=== PATIENT | female | born 1960 | race Caucasian/White ===

== ENCOUNTER 2017-02-26 09:49 | Inpatient (IN) ==
[2017-02-26] MEDS ORDERED: DUONEB (A & A) INH ONE (10:12)
[2017-02-26] MEDS ORDERED: ROCEPHIN 1 GM/NS 1 GM/50 ML IVPB IV ONE (11:17)
[2017-02-26 11:29] LABS: MANUAL DIFF NEEDED? NO
[2017-02-26 11:41] LABS: BASO% 0.3 % (0.0-0.8); EOS# 0.45 X1000 (0.0-0.7); EOS% 3.6 % (0.0-10.0); HEMATOCRIT 43.1 % (37.0-47.0); HEMOGLOBIN 14.1 g/dL (12.0-16.0); IMM GRAN# 0.07 X1000 (0.0-0.04); IMM GRAN% 0.6 % (0.0-0.5); LYMPH# 2.74 X1000 (1.2-3.4); LYMPH% 22.1 % (20.5-51.1); MCH 31.1 PG (27-31); MCHC 32.7 g/dL (33-37); MCV 95.1 FL (81-99); MONO# 0.85 X1000 (0.11-0.59); MONO% 6.9 % (1.7-9.3); MPV 9.9 FL (7.4-10.4); NEUT% 66.5 % (42.2-75.2); PLT 299 X1000 (130-400); RBC 4.53 XMIL (4.2-5.4)
[2017-02-26 12:20] LABS: BE 6.8 mmoll (-3.0-3.0); BLOOD TYPE ARTERIAL; METHB 1.2 % (0.0-1.5); PCO2(98.6) 43 mmHg (35-45); PO2(98.6) 103 mmHg (60-100); SAMPLE BLOOD; SAO2 96.9 % (95.0-100.0); pH(98.6) 7.47 (7.35-7.45)
[2017-02-26 12:21] LABS: ALLEN TEST YES; DRAW SITE R RADIAL; MODALITY CANNULA
[2017-02-26 13:58] LABS: AGAP 13; ALBUMIN 3.9 g/dL (3.5-5.0); ALKALINE PHOSPHATASE 85 U/L (32-104); BUN 9 mg/dL (8-22); CALCIUM 8.7 mg/dL (8.8-10.2); CHLORIDE 97 mmol/L (98-107); COSMO 274; GOT 20 U/L (10-30); GPT 17 U/L (10-36); POTASSIUM 5.4 mmol/L (3.5-5.1); SODIUM 137 mmol/L (136-145); TCO2 27 mmol/L (25-35); TOTAL PROTEIN 6.9 g/dL (6.3-8.3)
--- NOTE | 2017-02-26 14:26 | Diag Imaging Result Document ---
PROCEDURE NAME: CHEST-2 VIEWS - 02/26/2017 CHEST X-RAY 2 VIEWS, 02/26/2017: COMPARISON: 06/03/2012. FINDINGS: There is cardiomegaly that has worsened since prior. There is pulmonary vascular congestion as well. There is some ill-defined infiltrate in the lingula and left lower lobe. No pneumothorax or significant effusion. Stable surgical clips in the left axilla. IMPRESSION: 1. Cardiomegaly and pulmonary vascular congestion. 2. Mild infiltrates in the lingula and left lung base suggesting bronchopneumonia.
[2017-02-26] MEDS ORDERED: ROCEPHIN IM ONE (14:27)
[2017-02-26] MEDS ORDERED: XYLOCAINE-MPF 1% INJ ONE (14:27)
[2017-02-26] MEDS ORDERED: ZOFRAN IV PRN (14:30)
[2017-02-26] MEDS ORDERED: TORADOL IV PRN (14:30)
--- NOTE | 2017-02-26 14:35 | PROVIDER DOCUMENTATION ---
This chart was entered by Lio Gonzalez Scribe, acting as scribe for Kd Joseph MD. HPI-Respiratory General - General Chief Complaint: Shortness of Breath Stated Complaint: REQ BREATHING TX Time Seen by Provider: 02/26/17 10:12 Source: patient Allergies/Adverse Reactions: Patient Allergies Allergy/AdvReac Type Severity Reaction Status Date / Time codeine Allergy RASH Verified 02/26/17 10:03 levofloxacin [From Levaquin] Allergy Unknown Verified 02/26/17 10:03 morphine Allergy HIVES Verified 02/26/17 10:03 Penicillins Allergy HIVES Verified 02/26/17 10:03 Home Medications: Home Medication List Medication Instructions Recorded Confirmed Last Taken Type Albuterol Sulfate Inhaler 2 puff INH Q6H PRN PRN 10/17/13 02/26/17 02/26/17 History [Ventolin Hfa] Cyclobenzaprine [Flexeril] 10 mg PO BID 10/17/13 02/26/17 02/26/17 History Furosemide [Lasix] 40 mg PO DAILY 10/17/13 02/26/17 02/26/17 History Hydrocodone/Acetaminophen [[place] 1 each PO 4XDAY 10/17/13 02/26/17 02/26/17 History 10-325 Tablet] Metformin [Glucophage] 500 mg PO BID CC 10/17/13 02/26/17 02/26/17 History Nifedipine [Procardia Xl] 60 mg PO DAILY 10/17/13 02/26/17 02/26/17 History Potassium Chloride [Klor-Con M20] 20 meq PO DAILY 10/17/13 02/26/17 02/26/17 History Rosuvastatin Calcium [Crestor] 2.5 mg PO DAILY 10/17/13 02/26/17 02/26/17 History Tiotropium [place] Inhaler 1 puff INH RTDAILY 10/17/13 02/26/17 02/26/17 History [Spiriva] Ibuprofen [Motrin] 400 mg PO Q6H PRN PRN #14 tablet 02/09/16 02/26/17 02/26/17 Rx Gabapentin [Gabapentin] 300 mg PO TID 02/26/17 02/26/17 02/26/17 History Lisinopril [Lisinopril] 20 mg PO DAILY 02/26/17 02/26/17 02/26/17 History - History of Present Illness-Resp Nature of Presenting Problem: patient is a 56 yo F that presents to the ER with shortness of breath that has gotten worse over the past week. No chest pain, n/v/d, or swelling. Reports no fever/chills. History of COPD and still smokes 1/2 ppd. . patient's o2 at triage was 88 % on RA Quality of Pain: reports: tightness Severity in ED: reports: moderate Onset/Duration: reports: gradual, 1 week ago Timing: reports: still present, getting worse Context: denies: recent URI, sports/exercise, aspiration/choking Cough Quality/Degree: reports: moderate, dry cough Episode Frequency: chronic episodes Current Respiratory Medication Therapy: Initiated see nurses note Modifying Factors: worse with: exertion, coughing Associated Symptoms: reports: cough, shortness of breath, short of breath, wheezing. denies: fever/chills, flu-like symptoms, headache, hurts to breathe, nasal congestion, nasal drainage Similar Symptoms Previously?: Yes Recently seen or treated by another doctor?: No Review of Systems - Adult - REVIEW OF SYSTEMS - ADULT Constitutional: denies: chills, fever Eyes: reports: no symptoms reported Ears, Nose, Mouth & Throat: reports: no symptoms reported Cardiovascular: denies: chest pain, orthopnea, palpitations, syncope Respiratory: reports: cough, dyspnea on exertion, shortness of breath, wheezing Gastrointestinal: denies: abdominal pain, diarrhea, nausea, vomiting Genitourinary: reports: no symptoms reported Musculoskeletal: reports: no symptoms reported Integumentary: reports: no symptoms reported Neurological: reports: no symptoms reported Psychiatric: reports: no symptoms reported Endocrine: reports: no symptoms reported Hematologic/Lymphatic: reports: no symptoms reported Allergic/Immunologic: reports: no symptoms reported All Other Systems: Reviewed and Negative Past History - Adult - PAST MEDICAL HISTORY-ADULT Review of Records: reports: Old Records Reviewed, Nursing Assessment Review, Medications Reviewed Cardiovascular: reports: HTN, hyperlipidemia Respiratory: reports: asthma, COPD - PRIOR SURGERIES/PROCEDURES Surgical/Procedure History: reports: appendectomy, cholecystectomy, hysterectomy - IMMUNIZATION STATUS Childhood Immunizations: See Nurse Assessment Flu Vaccine: See Nurse Assessment - FAMILY HISTORY Family History: reviewed, not pertinent - SOCIAL HISTORY Smoking: cigarettes, less than 1 pack/day Provider spent 3-5 mins advising pt. on dangers of tobacco.: Discussed manners to quit use, and f/u contacts for add'l counseling. Living Situation: family Physical Exam-General - PHYSICAL EXAM-ADULT Exam Limited by: morbidly obesity Initial Vital Signs Reviewed: Yes - CONSTITUTIONAL General Appearance: alert, mild distress, obese - EYES Eyes: PERRL/EOMI, pink conjunctivae - HEAD, EARS, NOSE, MOUTH & THROAT HENMT: normocephalic/atraumatic, moist mucous membranes, normal ENT inspection - NECK Neck: full range of motion, normal inspection - RESPIRATORY Respiratory: no respiratory distress, no accessory muscle use, decreased breath sounds, wheezing - CARDIOVASCULAR Cardiovascular: no gallop, no murmur, tachycardia - GASTROINTESTINAL (ABDOMEN) Abdominal Exam: normal bowel sounds, non tender, soft, no organomegaly, no pulsatile mass - MUSCULOSKELETAL Extremity: normal inspection, no pedal edema, normal capillary refill - SKIN Integumentary: normal color, warm/dry - NEUROLOGIC Neurologic: grossly normal, no motor/sensory deficits - PSYCHIATRIC Psych/Mental Status: normal mood/affect, normal thought content, normal thought process, oriented x 3 Progress - PLAN OF CARE/RESULTS Progress/Plan/Lab Results: Vital Signs - 8 hr 02/26/17 09:58 02/26/17 10:50 Temperature 98.5 F Pulse Rate 114 H 89 Respiratory Rate 22 16 Blood Pressure 152/89 O2 Sat by Pulse Oximetry 88 L 91 L Laboratory Results - last 24 hr 02/26/17 02/26/17 02/26/17 11:22 11:22 12:00 WBC 12.38 H RBC 4.53 Hgb 14.1 Hct 43.1 MCV 95.1 MCH 31.1 H MCHC 32.7 L RDW Std Deviation 14.9 H Plt Count 299 MPV 9.9 Immature Gran % (Auto) 0.6 H Neut % (Auto) 66.5 Lymph % (Auto) 22.1 Wilkes % (Auto) 6.9 Eos % (Auto) 3.6 Baso % (Auto) 0.3 Immature Gran # (Auto) 0.07 H Neut # (Auto) 8.23 H Lymph # (Auto) 2.74 [place]kes # (Auto) 0.85 H Eos # (Auto) 0.45 Baso # (Auto) 0.04 Specimen Type ARTERIAL Sample Site R RADIAL pH 7.47 H pCO2 43 pO2 103 H HCO3 30.0 H Base Excess 6.8 H Oxyhemoglobin 90.1 L ABG O2 Saturation 96.9 ABG Carboxyhemoglobin 5.80 H* ABG Methemoglobin 1.2 Kam Test YES A-a O2 Difference 100.0 Total Hemoglobin 14.0 Lactate 1.60 Liter Flow 4.0 Blood Gas Modality CAN[place]ULA FiO2 % 36.0 Sodium 137 Potassium 5.4 H Chloride 97 L Carbon Dioxide 27 Anion Gap 13 BUN 9 Creatinine 0.6 Estimated GFR/1.73 m2 > 60 BUN/Creatinine Ratio 15 Glucose 134 H Calculated Osmolality 274 Calcium 8.7 L Total Bilirubin 0.20 AST 20 ALT 17 Alkaline Phosphatase 85 Total Protein 6.9 Albumin 3.9 Globulin 3.0 Albumin/Globulin Ratio 1.3 Orders Category Date Time Status IV Insertion ORDERED Care 02/26/17 11:16 Completed Oxygen Therapy- ED Nursing DIRECTED Care 02/26/17 10:12 Active Saline Loc DIRECTED Care 02/26/17 10:12 Active CHEST-2 VIEWS [RAD] Stat Exams 02/26/17 10:23 Taken ABG [RESP] Routine Lab 02/26/17 12:00 Completed BLOOD CULTURE [BLDCUL] Stat Lab 02/26/17 14:07 Ordered CBC WITH ELECTRONIC DIFF [HEME] Stat Lab 02/26/17 11:22 Completed CMP [COMPREHENSIVE METABOLIC PANEL] [CHEM] Stat Lab 02/26/17 11:22 Completed URINALYSIS W/POSS RFLX CULT-1 [URINALYSIS] Stat Lab 02/26/17 11:16 Uncollected Albuterol 2.5MG/Ipratrop 0.5MG [Duoneb (A & A)] Med 02/26/17 10:12 Discontinued 3 ml INH NOW ONE CefTRIAXONE 1 GM/NS [Rocephin 1 gm/Ns] Med 02/26/17 11:17 Discontinued 1 gm in 50 ml IV NOW Aerosol Treatments Routine Oth 02/26/17 10:13 Completed Aerosol Treatments Stat Oth 02/26/17 10:12 Completed Aerosol Treatments Stat Oth 02/26/17 10:13 Completed Pulse Oximetry Stat Oth 02/26/17 10:12 Completed Result Diagrams: 02/26/17 11:22 02/26/17 11:22 - XRAY 1 XRAY Study: Chest Impression: Abnormal XRAY Interpretation: L base infiltrates sugg. bronchopneumonia, cmg, pul vas princess - CONSULTS/PCP/HOSPITALIST Notification #1 *Consult/PCP/Hospitalist*: Time Discussed: 14:26 Reason/Comments: Bilateral bronchopneumonia Consult Disposition: Admit Departure - Departure Time of Disposition Decision: 14:27 DIAGNOSIS: Bronchopneumonia, COPD exacerbation Dyspnea Qualifiers: Dyspnea type: dyspnea on exertion Qualified Code(s): R06.09 - Other forms of dyspnea Disposition: ADMITTED INPATIENT 09 Certified Medical Emergency: Emergent Condition: Stable Referrals and Follow-Ups: Bandar Roberson MD [Primary Care Provider] - - Critical Care Note This patient required my direct & personal management of CC.: No This chart was documented by the indicated scribe, (Lio Gonzalez, Scribe) and accurately reflects the services I performed and decisions made by me, Kd Joseph MD, as attested by the provider's signature.
[2017-02-26 14:45] LABS: URINE CULTURE NEEDED? NO; URINE MICRO REVIEW NEEDED? NO; URINE SOURCE CLEAN CATCH
[2017-02-26 14:53] LABS: BILIRUBIN URINE NEGATIVE (NEGATIVE); BLOOD URINE NEGATIVE (NEGATIVE); COLOR YELLOW; GLUCOSE URINE NEGATIVE (NEGATIVE); LEUKOCYTES URINE NEGATIVE (NEGATIVE); NITRITE URINE NEGATIVE (NEGATIVE); PH URINE 5.5; PROTEIN URINE NEGATIVE (NEGATIVE); SP GRAVITY URINE 1.017; TURBIDITY URINE CLEAR (CLEAR); UROBILINOGEN URINE NORMAL (NORMAL)
[2017-02-26 14:57] LABS: UR EPITHELIAL CELLS <10 /HPF (<10); URINE BACTERIA NEGATIVE /HPF; URINE RBC <10 /HPF (<10); URINE WBC <10 /HPF (<10)
[2017-02-26] MEDS ORDERED: DUONEB (A & A) INH SCH (15:30)
[2017-02-26] MEDS ORDERED: COMMIT BUCCAL PRN (17:57)
[2017-02-26] MEDS ORDERED: LASIX IV ONE (18:07)
[2017-02-26] MEDS ORDERED: NICOTINE GUM MISC PRN (18:45)
[2017-02-26] MEDS: ALBUTEROL NEB INH PRN ×2 (19:57→22:42)
--- NOTE | 2017-02-26 20:01 | HISTORY AND PHYSICAL ---
CHIEF COMPLAINT: Cough and shortness of breath. PRESENT ILLNESS: Mrs. Lemus is a 55-year-old woman I have followed in my office for many years for morbid obesity, COPD due to ongoing cigarette abuse and type 2 diabetes mellitus. She also has central hypertension, sleep apnea and chronic low back pain. She presented to the emergency room today with a 6-7 day history of progressive chest congestion, cough, shortness of breath and some slight left-sided chest aching. She denies any fever or chills. Her cough is dry with minimal if any sputum production. She is on chronic home oxygen. She continues to smoke 1/2 to 3/4 of a pack of cigarettes per day. Multiple previous attempts at quitting smoking have been unsuccessful even with Chantix. Evaluation in the emergency room showed left lingular pneumonia. Her white blood count is somewhat elevated at 12,000. PAST MEDICAL HISTORY: Longstanding obesity, essential hypertension, chronic obstructive lung disease with hypoxemia and cor pulmonale. She has obstructive sleep apnea but is unable to tolerate CPAP. She has type 2 diabetes mellitus which has been relatively well- controlled with her last A1c 6 months ago at 5.8. PAST SURGICAL HISTORY: Positive for hysterectomy. HOME MEDICATIONS: Crestor 5 mg daily, Klor-Con 20 mEq daily, Procardia XL 60 mg daily, [place] 10 mg one 4 times a day for chronic pain, ProAir, albuterol inhaler 2 puffs 4 times a day, Spiriva HandiHaler 1 inhalation daily, vitamin D2 50,000 units once a week, furosemide 40 mg q.a.m., metformin 500 mg 1 in the morning 2 at the evening meal. ALLERGIC: Levofloxacin, atorvastatin, penicillin, codeine, erythromycin base and morphine. SOCIAL HISTORY: She is and lives with her . She does not use alcohol. REVIEW OF SYSTEMS: General: No headache, night sweats or weight loss. Cardiovascular: No recent chest pain. No history of angina or ischemic heart disease. She has a questionable history of cor pulmonale on echocardiogram but no left heart failure, no valvular heart disease, no palpitations, syncope or near syncope. Gastrointestinal: Appetite is good. No nausea or vomiting. No diarrhea, constipation, melena or bright red blood per rectum. No history of hepatitis. Genitourinary: No dysuria or hematuria. Musculoskeletal: Longstanding chronic low back pain followed at [facility] by Dr. Bravo. Neuropsychiatric: No history of strokes, seizures or memory disorders. Endocrine: History of incidentally discovered adrenal mass on CT scan several years ago. PHYSICAL EXAMINATION: VITAL SIGNS: See nurse's notes. GENERAL APPEARANCE: A morbidly obese, white female who appears older than her stated age. Sitting up on the side of the bed with oxygen on. SKIN: Warm, pink, and dry. There is no visible rash or striae. HEENT EXAMINATION: No visible trauma. Pupils are equal, round, reactive to light. Extraocular movements are intact. Oropharynx is benign with some tobacco staining. NECK: Supple with no adenopathy, JVD, thyromegaly or bruits. CHEST EXAMINATION: There are slightly diminished breath sounds in the left base. Otherwise air movement is good. I do not appreciate any wheezing or crackles. CARDIOVASCULAR: Regular rate and rhythm with distant S1, S2. No S3, S4, murmurs are heard. ABDOMEN: Obese soft, nontender, with no palpable masses. Bowel sounds are active. EXTREMITIES: There is moderate chronic brawny edema of both feet, ankles and lower legs. There is moderate stasis dermatitis changes to both shins. NEUROLOGIC EXAMINATION: Mental status is normal, clear and well-articulated speech. Cranial nerve examination is unremarkable. She moves all extremities on command. Gait is not tested. DATABASE: ABG on 4 L: pH 7.47, pCO2 43, PO2 103, lactate is normal, carboxyhemoglobin 5.8%. Hemoglobin and hematocrit are normal. White blood count 12,300. Sodium 137, potassium 5.4, glucose 134, BUN and creatinine are normal. Calcium is 8.7. Liver enzymes are unremarkable. Chest x-ray shows hazy infiltrate at left lingula and perhaps the left base. There is some increased cardiomegaly present. ASSESSMENT: 1. Cough and shortness of breath probably due to pneumonia. 2. Possible mild congestive heart failure. 3. Chronic obstructive lung disease with ongoing cigarette smoking. I have emphasized to her that it is time to make a decision whether to quit smoking and live or continue to smoke and fairly soon. 4. Type 2 diabetes mellitus, previously well-controlled. 5. Morbid obesity with obstructive sleep apnea, untreated. PLAN: Due to her allergies we will use intravenous Rocephin and oral doxycycline. I think several days of IV Lasix should help her edema and perhaps the pulmonary vascular congestion. I have reordered her Chantix and some nicotine lozenges. Her alf prognosis remains guarded due to her difficulty in quitting smoking. cc: Bandar Roberson MD MTDD
[2017-02-26] MEDS: CHANTIX PO SCH (21:53)
[2017-02-26] MEDS: DOXYCYCLINE PO SCH (21:53)
[2017-02-26] MEDS: NORCO-10 PO SCH (21:53)
[2017-02-27] MEDS: TYLENOL PO PRN (03:21)
[2017-02-27] MEDS: ALBUTEROL NEB INH PRN ×5 (03:47→22:49)
[2017-02-27] MEDS: SPIRIVA INH SCH (07:48)
[2017-02-27] MEDS: NEURONTIN PO SCH ×3 (08:39→17:37)
[2017-02-27] MEDS: NORCO-10 PO SCH ×4 (08:39→21:27)
[2017-02-27] MEDS: PROCARDIA ER PO SCH (08:39)
[2017-02-27] MEDS: PRINIVIL PO SCH (08:39)
[2017-02-27] MEDS: LASIX IV SCH (08:40)
[2017-02-27] MEDS: CRESTOR PO SCH (08:40)
[2017-02-27] MEDS: DOXYCYCLINE PO SCH ×2 (08:40→21:27)
[2017-02-27] MEDS: GLUCOPHAGE PO SCH ×2 (08:40→17:37)
[2017-02-27] MEDS ORDERED: KLOR-CON PO SCH (09:00)
[2017-02-27] MEDS ORDERED: ROSUVASTATIN CALCIUM 2.5 MG PO SCH (09:00)
[2017-02-27] MEDS ORDERED: ROCEPHIN 1 GM/NS 1 GM/50 ML IVPB IV SCH (12:00)
[2017-02-27] MEDS ORDERED: COMMIT BUCCAL PRN (15:35)
[2017-02-27] MEDS: CHANTIX PO SCH (21:28)
[2017-02-28] MEDS: NEURONTIN PO SCH ×4 (01:16→21:10)
[2017-02-28] MEDS: NORCO-10 PO SCH ×4 (01:16→21:09)
[2017-02-28] MEDS: ALBUTEROL NEB INH PRN ×6 (03:35→23:16)
[2017-02-28 05:52] LABS: MANUAL DIFF NEEDED? NO
[2017-02-28 06:03] LABS: BASO% 0.3 % (0.0-0.8); EOS# 0.31 X1000 (0.0-0.7); EOS% 3.2 % (0.0-10.0); HEMATOCRIT 39.6 % (37.0-47.0); HEMOGLOBIN 12.5 g/dL (12.0-16.0); IMM GRAN# 0.04 X1000 (0.0-0.04); IMM GRAN% 0.4 % (0.0-0.5); LYMPH# 2.29 X1000 (1.2-3.4); LYMPH% 23.5 % (20.5-51.1); MCH 30.2 PG (27-31); MCHC 31.6 g/dL (33-37); MCV 95.7 FL (81-99); MONO# 0.75 X1000 (0.11-0.59); MONO% 7.7 % (1.7-9.3); NEUT% 64.9 % (42.2-75.2); PLT 256 X1000 (130-400); RBC 4.14 XMIL (4.2-5.4)
[2017-02-28 06:10] LABS: AGAP 9; BUN 13 mg/dL (8-22); CHLORIDE 101 mmol/L (98-107); COSMO 286; POTASSIUM 4.4 mmol/L (3.5-5.1); SODIUM 142 mmol/L (136-145); TCO2 32 mmol/L (25-35)
[2017-02-28] MEDS: SPIRIVA INH SCH (07:19)
[2017-02-28] MEDS: PRINIVIL PO SCH (08:36)
[2017-02-28] MEDS: DOXYCYCLINE PO SCH ×2 (08:36→21:10)
[2017-02-28] MEDS: GLUCOPHAGE PO SCH (08:36)
[2017-02-28] MEDS: PROCARDIA ER PO SCH (08:36)
[2017-02-28] MEDS: LASIX IV SCH (08:37)
[2017-02-28] MEDS: CRESTOR PO SCH (08:38)
[2017-02-28] MEDS ORDERED: QUININE SULFATE PO ONE (08:42)
[2017-02-28] MEDS ORDERED: PRILOSEC PO ONE (08:43)
[2017-02-28] MEDS: LASIX PO SCH (09:00)
--- NOTE | 2017-02-28 10:20 | EKG Report ---
Test Performed on : 02/28/2017 09:15:44 AM Test Reason : cor pulmonale Blood Pressure : / mmHG Vent. Rate : 102 BPM Atrial Rate : 102 BPM P-R Int : 136 ms QRS Dur : 074 ms QT Int : 350 ms P-R-T Axes : 067 073 050 degrees QTc Int : 456 ms Sinus tachycardia. Otherwise normal ECG When compared with ECG of 03-JUN-2012 16:39, No significant change was found Confirmed by Bakari Burgos MD ([id number]) on 03/01/2017 7:02:19 AM
[2017-02-28] MEDS ORDERED: GLUCOPHAGE PO SCH (17:00)
[2017-02-28] MEDS: CHANTIX PO SCH (21:09)
[2017-03-01] MEDS: NORCO-10 PO SCH ×2 (02:18→09:01)
[2017-03-01] MEDS: ALBUTEROL NEB INH PRN ×3 (03:24→11:25)
[2017-03-01] MEDS: TYLENOL PO PRN (06:55)
[2017-03-01] MEDS ORDERED: PRILOSEC PO SCH (07:00)
[2017-03-01] MEDS: SPIRIVA INH SCH (07:43)
[2017-03-01] MEDS ORDERED: GLUCOPHAGE PO SCH (08:00)
[2017-03-01 08:39] VITALS: BP 149/48
[2017-03-01] MEDS: CRESTOR PO SCH (08:59)
[2017-03-01] MEDS: PRINIVIL PO SCH (09:00)
[2017-03-01] MEDS: LASIX PO SCH (09:00)
[2017-03-01] MEDS: NEURONTIN PO SCH (09:01)
[2017-03-01] MEDS: DOXYCYCLINE PO SCH (09:01)
[2017-03-01] MEDS: PROCARDIA ER PO SCH (09:12)
--- NOTE | 2017-04-16 18:40 | DISCHARGE SUMMARY ---
ADMISSION DATE: 02/26/2017 DISCHARGE DATE: 03/01/2017 FINAL DIAGNOSES: 1. Left lingular pneumonia. 2. Chronic obstructive pulmonary disease with acute exacerbation. 3. Nicotine dependence. 4. Type 2 diabetes mellitus. 5. Morbid obesity with untreated obstructive sleep apnea. PRESENT ILLNESS: Mrs. Lemus is a 55-year-old woman with longstanding tobacco abuse and COPD. She presented to the emergency room with a 6-7 day history of progressive chest congestion, cough, shortness of breath and some left-sided chest aching. She denied fever or chills. She is on chronic home oxygen therapy but continues to smoke 3/4 of a pack cigarettes per day. Chest x-ray in the emergency room showed left lingular pneumonia with elevated white blood count of 12,000. PHYSICAL EXAMINATION: Vital Signs: Unremarkable. See nurse's notes. HEENT Examination: Unremarkable. Neck: Supple with no JVD or bruits. Chest Examination: Diminished breath sounds in the left base. Air movement was good. No crackles or wheezes were heard. Cardiac Examination: Regular rate and rhythm with distant S1, S2. No murmurs. Abdomen: Obese, soft and nontender. DATABASE: Lactate is normal. Arterial blood gas on 4 L: pH 7.47, pCO2 43, PO2 103, carboxyhemoglobin 5.8%. HOSPITAL COURSE: She was admitted to the medical floor and treated with intravenous Rocephin and oral doxycycline. She was given several doses of intravenous Lasix for the possibility of some fluid overload. With [id number] nebulizer treatments and smoking cessation her shortness of breath and cough improved. Intravenous Rocephin was stopped. She continued to improve. Follow- up white blood count was 9000. Blood cultures were negative. At the time of discharge she was ambulatory with much improved shortness of breath and cough. She is willing to attempt smoking cessation yet again. Prescriptions were written for Chantix and her home medications. Her blood sugars have remain well-controlled while she was here. Hemoglobin A1c was actually near normal at 6.0. She is discharged in improved condition and to return to my office in 2 weeks for followup. cc: Bandar Roberson MD
== END 2017-03-01 12:52 | disposition home or self-care (01) ==
LOC: ED 09:49 → 4N 14:54
PROVIDERS: ADMIT Internal Medicine; ATTEND Internal Medicine

== ENCOUNTER 2018-10-26 18:09 | Inpatient (IN) ==
[2018-10-26 18:49] LABS: BASO# 0.04 X1000 (0.0-0.2); BASO% 0.3 % (0.0-0.8); EOS# 1.17 X1000 (0.0-0.7); EOS% 8.3 % (0.0-10.0); HEMATOCRIT 43.9 % (37.0-47.0); HEMOGLOBIN 13.9 g/dL (12.0-16.0); IMM GRAN# 0.12 X1000 (0.0-0.04); IMM GRAN% 0.8 % (0.0-0.5); LYMPH% 14.2 % (20.5-51.1); MCH 30.3 PG (27-31); MCHC 31.7 g/dL (33-37); MCV 95.6 FL (81-99); MONO# 0.86 X1000 (0.11-0.59); MONO% 6.1 % (1.7-9.3); MPV 9.5 FL (7.4-10.4); NEUT# 9.93 X1000 (1.4-6.5); NEUT% 70.3 % (42.2-75.2); PLT 342 X1000 (130-400); RBC 4.59 XMIL (4.2-5.4); RDW 14.7 % (11.5-14.5); WBC 14.12 X1000 (4.8-10.8)
--- NOTE | 2018-10-26 18:53 | PROVIDER DOCUMENTATION ---
This chart was entered by Maryellen Gil Scribe, acting as scribe for Tim Ramos DO. HPI-Respiratory General - General Source: patient - History of Present Illness-Resp Quality of Pain: reports: none Severity in ED: reports: moderate Onset/Duration: reports: 2 days ago, 3 days ago Timing: reports: getting worse Exposure: reports: unknown cause Cough Quality/Degree: reports: moderate, productive cough, sputum (brown) Episode Frequency: frequent episodes Current Respiratory Medication Therapy: Initiated albuterol (no improvment) Modifying Factors: improves with: exertion (worsens), albuterol nebulizer (no change) Associated Symptoms: reports: cough, shortness of breath, wheezing. denies: fever/chills Similar Symptoms Previously?: Yes Recently seen or treated by another doctor?: Yes <Tim Ramos - Last Filed: 10/26/18 20:25> <Eden Wiseman - Last Filed: 10/26/18 21:04> - General Stated Complaint: COPD, SOB Time Seen by Provider: 10/26/18 18:16 Allergies/Adverse Reactions: Patient Allergies Allergy/AdvReac Type Severity Reaction Status Date / Time codeine Allergy RASH Verified 02/26/17 10:03 levofloxacin [From Levaquin] Allergy Unknown Verified 02/26/17 10:03 morphine Allergy HIVES Verified 02/26/17 10:03 Penicillins Allergy HIVES Verified 02/26/17 10:03 Home Medications: Home Medication List Medication Instructions Recorded Confirmed Last Taken Type Albuterol Sulfate Inhaler 2 puff INH Q6H PRN PRN 10/17/13 09/26/18 02/26/17 History [Ventolin Hfa] Hydrocodone/Acetaminophen [[place] 1 each PO Q4HR PRN 10/17/13 09/27/18 09/26/18 History 10-325 Tablet] Nifedipine [Procardia Xl] 60 mg PO DAILY 10/17/13 09/26/18 02/26/17 History Potassium Chloride [Klor-Con M20] 20 meq PO DAILY 10/17/13 09/26/18 02/26/17 History Rosuvastatin Calcium [Crestor] 2.5 mg PO DAILY 10/17/13 09/26/18 02/26/17 History Tiotropium Mood[place] Inhaler 1 puff INH RTDAILY 10/17/13 09/26/18 02/26/17 History [Spiriva] Gabapentin 300 mg PO TID 02/26/17 09/26/18 02/26/17 History Lisinopril 20 mg PO DAILY 02/26/17 09/26/18 02/26/17 History Acetaminophen [Tylenol] 650 mg PO Q6H PRN PRN #0 tablet 03/01/17 09/26/18 Unknown Rx Furosemide [Lasix] 40 mg PO DAILY #30 tablet 03/01/17 09/26/18 Unknown Rx Metformin [Glucophage] 1,000 mg PO DAILY@1700 tablet 03/01/17 09/26/18 Unknown Rx Metformin [Glucophage] 500 mg PO WBREAKFAST tablet 03/01/17 09/26/18 Unknown Rx Varenicline [Chantix] 0.5 mg PO BID #60 tablet 03/01/17 09/26/18 Unknown Rx CefUROXIME [Ceftin] 250 mg PO Q12HR 5 Days #10 tab 09/30/18 Unknown Rx Prednisone 20 mg PO DAILY #5 tab 09/30/18 Unknown Rx Nitrofurantoin Monohyd/M-Cryst 100 mg PO BID #14 cap 10/11/18 Unknown Rx [Macrobid 100 mg Capsule] - History of Present Illness-Resp Nature of Presenting Problem: pt is a 58 yr old female presenting via EMS with 2-3 day hx of increased shortness of breath, no relief with breathing treatment, pt hx of same 10/01. pt denies any other complaints (Tim Ramos) pt is a 58 yr old female presenting via EMS with 2-3 day hx of increased shortness of breath, no relief with breathing treatment, pt hx of same 10/01. pt denies any other complaints (Maryellen Gil) Review of Systems - Adult - REVIEW OF SYSTEMS - ADULT Constitutional: reports: hussein. denies: fever Eyes: denies: blurred vision, double vision Ears, Nose, Mouth & Throat: denies: ear pain, sinus problem, throat pain Cardiovascular: denies: chest pain, palpitations, syncope Respiratory: reports: chronic cough, cough, dyspnea on exertion, excessive sputum production (brown sputum), shortness of breath, wheezing Gastrointestinal: reports: no symptoms reported Genitourinary: reports: no symptoms reported Musculoskeletal: reports: no symptoms reported Integumentary: reports: no symptoms reported Neurological: denies: dizziness/vertigo, headache/migraines Psychiatric: reports: no symptoms reported Endocrine: reports: no symptoms reported Hematologic/Lymphatic: reports: no symptoms reported Allergic/Immunologic: reports: no symptoms reported All Other Systems: Reviewed and Negative <Tim Ramos - Last Filed: 10/26/18 20:25> Past History - Adult - PAST MEDICAL HISTORY-ADULT Review of Records: reports: Old Records Reviewed, Nursing Assessment Review, Medications Reviewed, Social history reviewed & non-contributory. Major Childhood Illnesses: reports: denies history Cardiovascular: reports: HTN, hyperlipidemia Respiratory: reports: asthma, COPD Gastrointestinal: reports: denies history Obstetrical/Gynecological: reports: denies history Genitourinary: reports: denies history Musculoskeletal: reports: denies history Neurological: reports: denies history Endocrine/Immune: reports: denies history Other Conditions: reports: denies history - PRIOR SURGERIES/PROCEDURES Surgical/Procedure History: reports: appendectomy, cholecystectomy, hysterectomy - IMMUNIZATION STATUS Childhood Immunizations: See Nurse Assessment Flu Vaccine: See Nurse Assessment - FAMILY HISTORY Family History: reviewed, not pertinent - SOCIAL HISTORY Smoking: quit less than 1 year Substance Use: denies Living Situation: alone <Tim Ramos - Last Filed: 10/26/18 20:25> Physical Exam-General - PHYSICAL EXAM-ADULT Initial Vital Signs Reviewed: Yes - CONSTITUTIONAL General Appearance: alert, mild distress, obese - EYES Eyes: PERRL/EOMI - HEAD, EARS, NOSE, MOUTH & THROAT HENMT: normocephalic/atraumatic, moist mucous membranes, normal ENT inspection - NECK Neck: non-tender, full range of motion, supple, normal inspection - RESPIRATORY Respiratory: chest non-tender, no pleuratic chest pain, no accessory muscle use , respiratory distress (mild), wheezing (in/ex wheezing diffusely) - CARDIOVASCULAR Cardiovascular: normal peripheral pulses, tachycardia (115) - GASTROINTESTINAL (ABDOMEN) Abdominal Exam: normal bowel sounds, non tender, soft - LYMPHATIC Lymphatic: no adenopathy - MUSCULOSKELETAL Back Exam: normal inspection, no CVA tenderness, no vertebral tenderness Extremity: normal range of motion, non-tender, other (chronic lympedema) - SKIN Integumentary: normal color, normal turgor, warm/dry - NEUROLOGIC Neurologic: grossly normal, no motor/sensory deficits - PSYCHIATRIC Psych/Mental Status: normal mood/affect, normal thought content, normal thought process, oriented x 3 <Tim Ramos - Last Filed: 10/26/18 20:25> Progress - PLAN OF CARE/RESULTS Result Diagrams: 10/26/18 18:30 10/26/18 18:30 - EKG 1 Time of EKG reading by physician:: 19:30 EKG Read and Signed by:: Eden Wiseamn EKG Interpretation (*Must complete 3 of following elements*): Abnormal Rate: 110 Rhythm: afib with RVR [place]: normal [place] Interval: normal ST Wave: normal - XRAY 1 XRAY Study: Chest Impression: Abnormal ( Signed CHEST-1 VIEW - 10/26/2018 INDICATION: SEPSIS PROTOCOL COMPARISON: 10/03/2018 FINDINGS: There is significant cardiomegaly and pulmonary vascular congestion. There are new extensive bilateral infiltrates. No pneumothorax or large pleural effusion. IMPRESSION: Cardiomegaly and pulmonary edema. Electronically signed by Elijah Baker 10/26 7:37 PM 10/26/181936 Interpreting Physician: Elijah Baker MD Dictated Date/Time: 10/26/181935 cc: Tim Ramos DO; Bandar Roberson MD) Comparison with other Films: changes noted (10/03/18) - CHANGE OF SHIFT REPORT (ED Provider) Report Given and Care Transferred to:: [facility] <Tim Ramos - Last Filed: 10/26/18 20:25> - PLAN OF CARE/RESULTS Result Diagrams: 10/26/18 18:30 10/26/18 18:30 - REASSESSMENT Reassessment #1 Status: improving (pt signed out to me by Dr. Ramos pending labs and imaging. Pt with marked wheezes on my inital exam, much improved with duonebs and prednisone. Mildly elevated bnp with CHF on CXR likely due to new onset CHF. lasix given. pt mildy tachycardic with accelerated afib improved with diltiazem. Feeling better overall but continues to be hypoxic when removed from the venti-mask and placed back on home [place] oxygen. Will admit for further evaluation and treatment. Discussed case with Dr. Anderson, Hospitalist who will see and admit pt.) <BowenEden Joan - Last Filed: 10/26/18 21:04> - PLAN OF CARE/RESULTS Progress/Plan/Lab Results: Vital Signs - 8 hr 10/26/18 18:18 10/26/18 18:20 10/26/18 18:30 Temperature 98.1 F Pulse Rate 123 H 117 H 112 H Respiratory Rate 16 24 15 Blood Pressure 154/75 154/75 O2 Sat by Pulse Oximetry 92 L 94 L 95 10/26/18 18:40 10/26/18 18:50 10/26/18 19:00 Temperature Pulse Rate 106 H 118 H 114 H Respiratory Rate 20 16 23 Blood Pressure O2 Sat by Pulse Oximetry 95 93 L 94 L 10/26/18 19:10 10/26/18 19:20 10/26/18 19:30 Temperature Pulse Rate 100 H 121 H 105 H Respiratory Rate 26 H 18 21 Blood Pressure O2 Sat by Pulse Oximetry 93 L 92 L 93 L 10/26/18 19:40 10/26/18 19:50 10/26/18 19:59 Temperature Pulse Rate 88 102 H Respiratory Rate 17 18 Blood Pressure 136/88 O2 Sat by Pulse Oximetry 92 L 93 L 91 L 10/26/18 20:01 10/26/18 20:02 10/26/18 20:04 Temperature Pulse Rate 100 H 124 H 106 H Respiratory Rate 21 23 26 H Blood Pressure 161/146 O2 Sat by Pulse Oximetry 91 L 92 L 10/26/18 20:05 Temperature Pulse Rate 102 H Respiratory Rate 20 Blood Pressure 121/72 O2 Sat by Pulse Oximetry 92 L 10/26/18 20:06 Influenza Screen - Final Nasopharyngeal Laboratory Results - last 24 hr 10/26/18 10/26/18 10/26/18 18:30 18:30 18:30 WBC 14.12 H RBC 4.59 Hgb 13.9 Hct 43.9 MCV 95.6 MCH 30.3 MCHC 31.7 L RDW Std Deviation 14.7 H Plt Count 342 MPV 9.5 Immature Gran % (Auto) 0.8 H Neut % (Auto) 70.3 Lymph % (Auto) 14.2 L [place] % (Auto) 6.1 Eos % (Auto) 8.3 Baso % (Auto) 0.3 Immature Gran # (Auto) 0.12 H Neut # (Auto) 9.93 H Lymph # (Auto) 2.00 Whitman # (Auto) 0.86 H Eos # (Auto) 1.17 H Baso # (Auto) 0.04 PT INR PTT (Actin FS) Sodium 144 Potassium 3.6 Chloride 98 Carbon Dioxide 33 Anion Gap 13 BUN 9 Creatinine 0.6 Estimated GFR/1.73 m2 > 60 BUN/Creatinine Ratio 15 Glucose 169 H Calculated Osmolality 289 Calcium 8.9 Total Bilirubin 0.27 AST 8 L ALT 6 L Alkaline Phosphatase 77 Creatine Kinase 33 Troponin T Lju-S-Iluwflsnwtw Pept Total Protein 6.3 Albumin 3.6 Globulin 2.7 Albumin/Globulin Ratio 1.3 Plasma Lactate 10/26/18 10/26/18 10/26/18 18:30 18:30 18:30 WBC RBC Hgb Hct MCV MCH MCHC RDW Std Deviation Plt Count MPV Immature Gran % (Auto) Neut % (Auto) Lymph % (Auto) Whitman % (Auto) Eos % (Auto) Baso % (Auto) Immature Gran # (Auto) Neut # (Auto) Lymph # (Auto) [place] # (Auto) Eos # (Auto) Baso # (Auto) PT 13.5 INR 0.95 PTT (Actin FS) 26.0 Sodium Potassium Chloride Carbon Dioxide Anion Gap BUN Creatinine Estimated GFR/1.73 m2 BUN/Creatinine Ratio Glucose Calculated Osmolality Calcium Total Bilirubin AST ALT Alkaline Phosphatase Creatine Kinase Troponin T < 0.010 Rzx-P-Zvkgnfsccus Pept Total Protein Albumin Globulin Albumin/Globulin Ratio Plasma Lactate 1.5 10/26/18 18:30 WBC RBC Hgb Hct MCV MCH MCHC RDW Std Deviation Plt Count MPV Immature Gran % (Auto) Neut % (Auto) Lymph % (Auto) [place] % (Auto) Eos % (Auto) Baso % (Auto) Immature Gran # (Auto) Neut # (Auto) Lymph # (Auto) [place] # (Auto) Eos # (Auto) Baso # (Auto) PT INR PTT (Actin FS) Sodium Potassium Chloride Carbon Dioxide Anion Gap BUN Creatinine Estimated GFR/1.73 m2 BUN/Creatinine Ratio Glucose Calculated Osmolality Calcium Total Bilirubin AST ALT Alkaline Phosphatase Creatine Kinase Troponin T Kfx-S-Yzefludfpmc Pept 442 H Total Protein Albumin Globulin Albumin/Globulin Ratio Plasma Lactate Orders Category Date Time Status Cardiac Monitoring DIRECTED Care 10/26/18 18:22 Active Cardiac Monitoring DIRECTED Care 10/26/18 18:25 Completed IV Insertion ORDERED Care 10/26/18 18:22 Completed IV Insertion ORDERED Care 10/26/18 18:25 Completed Notify MD of + Sepsis Screen NOW Care 10/26/18 18:22 Active Notify MD of + Sepsis Screen NOW Care 10/26/18 18:25 Completed Notify Physician As Ordered Care 10/26/18 18:22 Active Notify Physician As Ordered Care 10/26/18 18:25 Inactive CHEST-1 VIEW [RAD] Stat Exams 10/26/18 18:25 Completed BLOOD CULTURE [BLDCUL] Stat Lab 10/26/18 18:42 Results BNP [PRO B-NATRIURETIC PEPTIDE] Stat Lab 10/26/18 18:30 Completed CBC WITH DIFF [HEME] Stat Lab 10/26/18 18:30 Completed CK PROFILE [SP CHEM] Stat Lab 10/26/18 18:30 Completed COMPREHENSIVE METABOLIC PANEL [CHEM] Stat Lab 10/26/18 18:30 Completed INFLUENZA SCREEN A/B Stat Lab 10/26/18 20:06 Completed LACTATE, PLASMA [CHEM] Q3H Lab 10/26/18 18:30 Completed PROTIME WITH INR [COAG] Stat Lab 10/26/18 18:30 Completed PTT [COAG] Stat Lab 10/26/18 18:30 Completed TROPONIN T Stat Lab 10/26/18 18:30 Completed 0.9% Sodium Chloride Inj [Ns] 500 ml Med 10/26/18 19:08 Discontinued IV 999 mls/hr Albuterol 2.5MG/Ipratrop 0.5MG [Duoneb (A & A)] Med 10/26/18 19:08 Discontinued 3 ml INH NOW ONE Diltiazem [Cardizem] Med 10/26/18 19:40 Discontinued 10 mg IV NOW ONE Diltiazem [Cardizem] Med 10/26/18 20:53 Discontinued 20 mg IV NOW ONE Doxycycline 100 mg Med 10/26/18 20:53 Active 0.9% Sodium Chloride Inj [Ns] 250 ml IV NOW Furosemide [Lasix] Med 10/26/18 20:25 Discontinued 40 mg IV NOW ONE Prednisone Med 10/26/18 19:08 Discontinued 60 mg PO NOW ONE Aerosol Treatments Routine Oth 10/26/18 19:08 Completed Aerosol Treatments Stat Oth 10/26/18 19:08 Completed Oxygen Device Stat Oth 10/26/18 18:22 Active Oxygen Device Stat Ot 10/26/18 18:25 Active Departure <Tim Ramos - Last Filed: 10/26/18 20:25> - Departure Date of Disposition Decision: 10/26/18 Time of Disposition Decision: 21:03 Certified Medical Emergency: Emergent - Critical Care Note This patient required my direct & personal management of CC.: No <Eden Wiseman - Last Filed: 10/26/18 21:04> - Departure DIAGNOSIS: COPD exacerbation CHF (congestive heart failure) Qualifiers: Heart failure type: other Qualified Code(s): I50.9 - Heart failure, unspecified URI (upper respiratory infection) Qualifiers: URI type: unspecified URI Qualified Code(s): J06.9 - Acute upper respiratory infection, unspecified Disposition: ADMITTED INPATIENT 09 Condition: Stable Referrals and Follow-Ups: Bandar Roberson MD [Primary Care Provider] - Attestation - Physician/ FLO Attestation Patient care was provided by Advanced Practice Provider:: No The physician spent face to face time with patient:: Yes Advanced Practice Provider documentation review:: Supervising physician onsite and consulted in the evaluation and care of this patient. The physician did have a face to face encounter with the patient. <Eden Wiseman - Last Filed: 10/26/18 21:04> This chart was documented by the indicated scribe, (Maryellen Gil, [place]) and accurately reflects the services I performed and decisions made by Rachel de la torre Thomas E., DO, as attested by the provider's signature.
[2018-10-26 19:07] LABS: INR 0.95; PROTIME 13.5 Seconds (11.0-16.0)
[2018-10-26] MEDS ORDERED: PREDNISONE PO ONE (19:08)
[2018-10-26] MEDS ORDERED: NS 500 ML IV ONE (19:08)
[2018-10-26] MEDS ORDERED: DUONEB (A & A) INH ONE (19:08)
[2018-10-26 19:10] LABS: AGAP 13; ALB/GLOB RATIO 1.3; ALBUMIN 3.6 g/dL (3.5-5.0); ALKALINE PHOSPHATASE 77 U/L (32-104); BUN 9 mg/dL (8-22); CALCIUM 8.9 mg/dL (8.8-10.2); CHLORIDE 98 mmol/L (98-107); COSMO 289; CREATININE 0.6 mg/dL (0.5-0.9); ESTIMATED GFR > 60; GLUCOSE 169 mg/dL (70-104); GOT 8 U/L (10-30); GPT 6 U/L (10-36); POTASSIUM 3.6 mmol/L (3.5-5.1); SODIUM 144 mmol/L (136-145); TCO2 33 mmol/L (25-35); TOTAL BILIRUBIN 0.27 mg/dL (0.20-1.00); TOTAL PROTEIN 6.3 g/dL (6.3-8.3)
--- NOTE | 2018-10-26 19:39 | Diag Imaging Result Doc PS360 ---
CHEST-1 VIEW - 10/26/2018 INDICATION: SEPSIS PROTOCOL COMPARISON: 10/03/2018 FINDINGS: There is significant cardiomegaly and pulmonary vascular congestion. There are new extensive bilateral infiltrates. No pneumothorax or large pleural effusion. IMPRESSION: Cardiomegaly and pulmonary edema. Electronically signed by Elijah Baker 10/26/2018 7:37 PM
[2018-10-26] MEDS ORDERED: CARDIZEM IV ONE ×2 (19:40→20:53)
[2018-10-26] MEDS ORDERED: LASIX IV ONE (20:25)
[2018-10-26] MEDS ORDERED: DOXYCYCLINE 100 MG in NS 250 ML IV ONE (20:53)
[2018-10-26] MEDS ORDERED: ZOFRAN IV PRN (22:59)
[2018-10-26] MEDS ORDERED: SOLU-MEDROL IV SCH (22:59)
[2018-10-26] MEDS ORDERED: LASIX IV SCH (22:59)
[2018-10-27] MEDS: DUONEB (A & A) INH SCH ×3 (00:02→07:39)
[2018-10-27] MEDS: HEPARIN SUBQ SCH ×3 (00:04→22:01)
--- NOTE | 2018-10-27 03:16 | HISTORY AND PHYSICAL ---
PRIMARY CARE PHYSICIAN: Dr. Roberson. CHIEF COMPLAINT: Shortness of breath x3 days. HISTORY OF PRESENTING ILLNESS: A 58-year-old female with a history of COPD on home oxygen, sleep apnea, diabetes mellitus type 2 and hyperlipidemia, who had presented to emergency department with 3 days history of worsening shortness of breath. The patient states that she tried to increase her home oxygen, however, she did not have any improvement. She was still gasping for breath. She was seen in the emergency department. She had imaging done which did show possible pulmonary edema. Subsequently, she was given IV Lasix and she had some improvement. She continued to be short of breath during her evaluation the ED and due to her presenting symptoms she will require admission for further management. At the time of my examination, she denied any headache, visual changes, fevers, chills, chest pain, hemoptysis, melena, but complained of shortness of breath. PAST MEDICAL HISTORY: COPD on home oxygen, sleep apnea, diabetes mellitus type 2, hypertension, hyperlipidemia. PAST SURGICAL HISTORY: Hysterectomy, right carpal tunnel surgery, cholecystectomy, appendectomy. ALLERGIES: Codeine, levofloxacin, morphine, penicillin. CURRENT MEDICATIONS: As listed in the medication reconciliation sheet. SOCIAL HISTORY: Forty-eight years pack years history of smoking. Denies any history of alcohol or illicit drug use. FAMILY HISTORY: No history of coronary artery disease. REVIEW OF SYSTEMS: Fourteen point review of systems as listed in HPI. Other systems negative. PHYSICAL EXAMINATION: GENERAL: The patient is resting more comfortably now. She is on a Ventimask. VITAL SIGNS: Temperature 98.1 degrees, pulse 115, respiration 24, blood pressure 154/75. HEENT: Atraumatic, normocephalic. Extraocular movements intact. PERRLA. NECK: No masses. CHEST: Rhonchi. CARDIOVASCULAR: Regular rate and rhythm. ABDOMEN: Soft. Positive bowel sounds. EXTREMITIES: Trace edema. NEUROLOGIC: She is awake, alert, oriented x3. GENITOURINARY: No bladder distention. SKIN: Warm. LABORATORIES AND STUDIES: WBCs 14.12, hemoglobin 13.9, hematocrit 43.9, platelets 342,000. Sodium 144, potassium 3.6, chloride 98, CO2 is 33, BUN is 9, creatinine 0.6, glucose 169. ProBNP is 442, troponin is 0.010. Chest x-ray shows cardiomegaly and pulmonary edema. ASSESSMENT: A 58-year-old female with a history of chronic obstructive pulmonary disease, sleep apnea, diabetes mellitus type 2 and hypertension had presented to the emergency department with 3 days history of worsening shortness of breath. She was evaluated in the emergency department and due to her overall presenting symptoms, she will require admission for further management. 1. Acute on chronic respiratory failure. 2. Chronic obstructive pulmonary disease exacerbation. 3. Possible congestive heart failure. 4. Diabetes mellitus type 2. 5. Hypertension. PLAN: 1. We will admit patient to [facility]. 2. Continue patient on Ventimask with oxygen protocol. 3. We will continue with DuoNebs, IV Solu-Medrol. 4. We will continue with gentle diuresis with Lasix. If she does not have any improvement, we will need to start patient on BiPAP. 5. We will put patient on glycemic protocol with sliding scale insulin regimen. 6. We will monitor blood pressure closely and resume antihypertensive agent. 7. Put patient on DVT prophylaxis with heparin. 8. We will continue to follow and reassess and make further recommendation based on patient's clinical course. cc: MD Bandar Lea MD
[2018-10-27 05:54] LABS: BASO# 0.02 X1000 (0.0-0.2); BASO% 0.2 % (0.0-0.8); EOS# 0.07 X1000 (0.0-0.7); EOS% 0.7 % (0.0-10.0); HEMATOCRIT 42.7 % (37.0-47.0); HEMOGLOBIN 13.4 g/dL (12.0-16.0); IMM GRAN# 0.09 X1000 (0.0-0.04); IMM GRAN% 0.9 % (0.0-0.5); LYMPH# 0.81 X1000 (1.2-3.4); LYMPH% 7.7 % (20.5-51.1); MCHC 31.4 g/dL (33-37); MCV 95.5 FL (81-99); MONO# 0.11 X1000 (0.11-0.59); MPV 9.7 FL (7.4-10.4); NEUT# 9.38 X1000 (1.4-6.5); NEUT% 89.5 % (42.2-75.2); PLT 330 X1000 (130-400); RBC 4.47 XMIL (4.2-5.4); RDW 14.6 % (11.5-14.5); WBC 10.48 X1000 (4.8-10.8)
[2018-10-27 06:14] LABS: AGAP 14; BUN 10 mg/dL (8-22); CALCIUM 8.6 mg/dL (8.8-10.2); CHLORIDE 96 mmol/L (98-107); COSMO 299; CREATININE 0.7 mg/dL (0.5-0.9); ESTIMATED GFR > 60; GLUCOSE 337 mg/dL (70-104); POTASSIUM 3.3 mmol/L (3.5-5.1); SODIUM 144 mmol/L (136-145); TCO2 34 mmol/L (25-35)
[2018-10-27] MEDS ORDERED: RELISTOR SUBQ ONE (06:22)
[2018-10-27 06:27] LABS: EOS 1 % (1-10); LYMPHS 9 % (21-51); MONO 1 % (1-9); SEGS 89 % (42-75)
[2018-10-27] MEDS: NORCO-10 PO PRN ×2 (06:33→12:38)
[2018-10-27] MEDS ORDERED: HUMULIN R SUBQ SCH (07:00)
[2018-10-27] MEDS ORDERED: TYLENOL PO PRN (07:58)
[2018-10-27] MEDS: KLOR-CON PO SCH (08:46)
[2018-10-27] MEDS: PRINIVIL PO SCH (08:46)
[2018-10-27] MEDS: DOXYCYCLINE PO SCH ×2 (08:46→22:01)
[2018-10-27] MEDS: ADALAT CC PO SCH (08:46)
[2018-10-27] MEDS: NEURONTIN PO SCH ×3 (08:46→16:44)
[2018-10-27] MEDS: GLUCOPHAGE PO SCH ×2 (08:46→16:45)
[2018-10-27] MEDS: CHANTIX PO SCH ×2 (09:13→22:02)
[2018-10-27] MEDS: ALBUTEROL NEB INH SCH ×4 (11:11→23:42)
[2018-10-27] MEDS: HUMULIN R SUBQ SCH ×3 (11:43→22:02)
[2018-10-27] MEDS ORDERED: SOLU-MEDROL IV SCH (18:00)
[2018-10-27] MEDS: CRESTOR PO SCH (22:07)
[2018-10-28] MEDS: NORCO-10 PO PRN ×4 (01:07→19:06)
[2018-10-28] MEDS: ALBUTEROL NEB INH SCH ×4 (03:05→20:30)
[2018-10-28] MEDS: HUMULIN R SUBQ SCH ×5 (06:34→21:42)
[2018-10-28] MEDS: SPIRIVA INH SCH (08:29)
[2018-10-28] MEDS: NEURONTIN PO SCH ×3 (08:57→18:43)
[2018-10-28] MEDS: GLUCOPHAGE PO SCH ×2 (08:57→18:43)
[2018-10-28] MEDS: ADALAT CC PO SCH (08:57)
[2018-10-28] MEDS: PRINIVIL PO SCH (08:57)
[2018-10-28] MEDS: KLOR-CON PO SCH (08:57)
[2018-10-28] MEDS: DOXYCYCLINE PO SCH ×3 (08:57→20:32)
[2018-10-28] MEDS: CHANTIX PO SCH ×3 (08:58→20:30)
--- NOTE | 2018-10-28 10:21 | EKG Report ---
Test Performed on : 10/28/2018 10:03:19 AM Test Reason : tachycardia Blood Pressure : / mmHG Vent. Rate : 133 BPM Atrial Rate : 088 BPM P-R Int : 160 ms QRS Dur : 074 ms QT Int : 294 ms P-R-T Axes : 000 076 020 degrees QTc Int : 437 ms Sinus rhythm. with premature supraventricular complexes. and with frequent premature ventricular comp lexes. Low voltage QRS Nonspecific ST abnormality Abnormal ECG When compared with ECG of 26-OCT-2018 18:18, (Unconfirmed) Sinus rhythm. has replaced Atrial fibrillation. Confirmed by Karol DIAZ, Bandar Wakefield ([id number]) on 10/28/2018 5:42:02 PM
--- NOTE | 2018-10-28 10:45 | EKG Report ---
Test Performed on : 10/26/2018 6:18:09 PM Test Reason : ED. NO EKG ORDER FOR MUSE Blood Pressure : / mmHG Vent. Rate : 110 BPM Atrial Rate : 110 BPM P-R Int : 000 ms QRS Dur : 076 ms QT Int : 348 ms P-R-T Axes : 000 064 032 degrees QTc Int : 470 ms Atrial fibrillation. with rapid ventricular response. Abnormal ECG When compared with ECG of 11-OCT-2018 13:01, (Unconfirmed) Previous ECG has undetermined rhythm, needs review Unconfirmed Result
[2018-10-28] MEDS: HEPARIN SUBQ SCH ×3 (11:15→23:00)
[2018-10-28] MEDS: CRESTOR PO SCH ×2 (19:51→23:01)
[2018-10-28] MEDS: COREG PO SCH ×2 (19:52→22:59)
[2018-10-29] MEDS: NORCO-10 PO PRN ×5 (00:34→23:58)
[2018-10-29] MEDS: ALBUTEROL NEB INH SCH ×3 (03:13→07:39)
[2018-10-29] MEDS: HUMULIN R SUBQ SCH ×5 (05:48→22:00)
[2018-10-29] MEDS: GLUCOPHAGE PO SCH ×2 (07:22→17:13)
[2018-10-29] MEDS: SPIRIVA INH SCH (07:40)
--- NOTE | 2018-10-29 08:18 | Diag Imaging Result Doc PS360 ---
EXAM: CHEST-2 VIEWS 10/29/2018 HISTORY: CHF? TECHNIQUE: PA and lateral chest COMMENT: There is a left pleural effusion and possibly a small right pleural effusion. Compared to 10/26/2018 there has been marked improvement in the pulmonary edema which was present previously. There is still ill-defined opacity in the left lower lobe obscuring the left heart border and diaphragm. IMPRESSION: Improved pulmonary edema. Residual atelectasis or pneumonia left lower lobe with left greater than right pleural effusion. Electronically signed by Herberth Garza 10/29/2018 8:16 AM
[2018-10-29] MEDS: CHANTIX PO SCH ×2 (08:27→20:24)
[2018-10-29] MEDS: DOXYCYCLINE PO SCH ×2 (08:28→20:24)
[2018-10-29] MEDS: ADALAT CC PO SCH (08:28)
[2018-10-29] MEDS: COREG PO SCH ×2 (08:28→20:24)
[2018-10-29] MEDS: PRINIVIL PO SCH (08:28)
[2018-10-29] MEDS: KLOR-CON PO SCH (08:28)
[2018-10-29] MEDS: PREDNISONE PO SCH ×2 (08:29→09:00)
[2018-10-29] MEDS: NEURONTIN PO SCH ×3 (08:29→17:13)
[2018-10-29] MEDS: HEPARIN SUBQ SCH ×2 (11:20→23:48)
[2018-10-29] MEDS: VENTOLIN HFA INH SCH ×4 (11:28→21:44)
[2018-10-29] MEDS: CRESTOR PO SCH (20:23)
[2018-10-30] MEDS: VENTOLIN HFA INH SCH (03:04)
[2018-10-30] MEDS: HUMULIN R SUBQ SCH (06:03)
[2018-10-30] MEDS: NORCO-10 PO PRN (08:13)
[2018-10-30] MEDS: NEURONTIN PO SCH (08:13)
[2018-10-30] MEDS: PRINIVIL PO SCH (08:13)
[2018-10-30] MEDS: GLUCOPHAGE PO SCH (08:14)
[2018-10-30] MEDS: ADALAT CC PO SCH (08:14)
[2018-10-30] MEDS: KLOR-CON PO SCH (08:14)
[2018-10-30] MEDS: PREDNISONE PO SCH (08:15)
[2018-10-30] MEDS ORDERED: COREG PO SCH (09:00)
[2018-10-30] MEDS ORDERED: DOXYCYCLINE PO SCH (09:00)
--- NOTE | 2018-10-30 09:23 | DISCHARGE SUMMARY ---
ADMISSION DATE: 10/26/2018 DISCHARGE DATE: 10/30/2018 FINAL DIAGNOSES: 1. Acute left-sided community-acquired pneumonia. 2. Acute cor pulmonale with transient pulmonary edema. 3. Type 2 diabetes mellitus. 4. Essential hypertension. 5. Obstructive sleep apnea, untreated. 6. Chronic obstructive pulmonary disease on home oxygen. 7. Bilateral venous stasis, severe. 8. Morbid obesity. HISTORY OF PRESENT ILLNESS: Mrs. Lemus is a 58-year-old female with a history of COPD on home oxygen and other medical problems as listed above, who presented to the emergency room with worsening shortness of breath for 2-3 days. Her initial chest x-ray suggested some pulmonary edema and she was given intravenous Lasix in the emergency room with slight improvement. However, she continued to have wheezing and shortness of breath. Her chest x-ray also suggested some left lower lobe pneumonia or atelectasis. White blood count was modestly elevated. She was admitted for treatment of exacerbation of COPD, probable congestive heart failure, and pneumonia. PHYSICAL EXAMINATION: Revealed normal temperature, pulse 115, respirations 24, blood pressure 154/75. Almost comfortable on a Ventimask. Chest exam revealed diffuse expiratory rhonchi. Cardiovascular: Regular tachycardia. Abdomen was soft, obese, and nontender. Extremities: Marked brawny edema with trace pitting edema. DATABASE: Chest x-ray: Cardiomegaly with probable pulmonary edema. White blood count 14,000, hematocrit 43.9%. Electrolytes were normal. ProBNP 442. Troponin negative. HOSPITAL COURSE: She was admitted to the medical floor and treated with [id number] nasal O2, medicated aerosol treatments, IV Solu-Medrol, and intravenous Lasix. She had been admitted approximately a month ago and during that admission, her echocardiogram documented low normal left ventricular ejection fraction with some right ventricular dysfunction. With diuresis, antibiotics, and steroids, her shortness of breath and wheezing improved. Her steroids were tapered relatively rapidly due to hyperglycemia, which improved with sliding scale insulin and reduction in the steroid dose. She continued to be somewhat tachycardic with a heart rate around 100 and was started on carvedilol 3.125 mg twice a day and tolerated this well. This was increased to 6.25 mg. Her followup chest x-ray showed resolution of her pulmonary edema and presence of a left pleural effusion and left-sided basilar pneumonia. Followup white blood count was improved. Her intravenous Rocephin was discontinued and she was continued on doxycycline. DISCHARGE MEDICATIONS: 1. Carvedilol 6.25 mg twice a day. 2. Doxycycline 100 mg daily. 3. Prednisone 20 mg daily. 4. Albuterol sulfate inhaler 2 puffs 4 times a day as needed for wheezing. 5. Potassium chloride 20 mEq daily. 6. Spiriva inhaler 1 inhalation daily. 7. Nifedipine XL 60 mg daily. 8. Rosuvastatin 5 mg daily. 9. [place] 10 one q.i.d. p.r.n. for back pain. 10.Lisinopril 20 mg daily. 11.Gabapentin 300 mg 3 times a day for neuropathy pain. 12.Furosemide 40 mg in the morning. 13.Metformin 500 mg daily with breakfast, 1000 mg daily with supper. 14.Chantix 0.5 mg twice a day. 15.Acetaminophen 650 mg q.4 hours as needed for fever or pain. She is to return to my office in 8-14 days for transitional care visit. cc: Bandar Roberson MD
[2018-10-30] MEDS: CHANTIX PO SCH (10:20)
[2018-10-30 11:09] VITALS: BP 115/82
== END 2018-10-30 12:22 | disposition hospice, home (50) | DRG 193 ==
LOC: SUPCPDRO → ED 18:09 → 3S 22:04 → SUATTDRO 22:04
PROVIDERS: ADMIT Internal Medicine; ATTEND Internal Medicine
CPT/HCPCS: 71010; 71020; 71045; 71046; 80048; 80053; 82550; 82948; 83605; 83880; 84443; 84484; 85025; 85610; 85730; 87040; 87275; 87276; 87804; 93005; 93010; 93306; 94640; 94761; 96361; 96365; 96366; 96375; 96376; 99285; A9270; J1644; J1940; J2920; J2930; J7040; J7050; J7506; J7512; XXXXX